=== PATIENT | male | born 1970 | race Caucasian/White ===

== ENCOUNTER 2016-07-20 22:59 | Inpatient (IN) | payer OTHER ==
[~2016-07-20] VITALS: Ht 182.9 cm; Wt 83.0 kg
[2016-07-20 23:01] VITALS: BP 139/80; PULSE 93; RESP 16; TEMP 98.1; O2SAT 97
[2016-07-20] MEDS ORDERED: SODIUM CHLOR 0.9% 1000 ML INJ 1,000 ML IV SCH (23:58)
[2016-07-21] MEDS ORDERED: ceFAZolin 2 GM PREMIX 50 ML IV ONE
[2016-07-21] MEDS ORDERED: ONDANSETRON HCL 4 MG/2 ML VIAL IVP ONE
[2016-07-21] MEDS ORDERED: DIPHTH/TETANUS/ACEL PERTUSSIS (BOOSTER) 0.5 ML VIAL/PFS IM ONE
[2016-07-21] MEDS ORDERED: SODIUM CHLORIDE 0.9% FLUSH 5 ML FLUSH IVF PRN
[2016-07-21] MEDS ORDERED: MORPHINE SULFATE 4 MG/ML INJ IV ONE
[2016-07-21 00:26] LABS: I-STAT POTASSIUM 3.9 MMOL/L (3.5-4.9); I-STAT SODIUM 139 MMOL/L (138-146)
[2016-07-21 00:38] LABS: AUTOMATED NEUTROPHIL # 9.3 TH/MM3 (1.8-7.7); BASOPHIL # 0.1 TH/MM3 (0-0.2); BASOPHIL % 0.6 % (0.0-2.0); EOSINOPHIL # 0.3 TH/MM3 (0-0.4); EOSINOPHIL % 2.3 % (0.0-4.0); HEMATOCRIT 46.5 % (39.0-51.0); HEMO FLAGS DIFF FINAL; LYMPH % 14.3 % (9.0-44.0); LYMPHOCYTE # 1.7 TH/MM3 (1.0-4.8); MEAN CELL VOLUME 86.8 FL (80.0-100.0); MEAN CORPUSCULAR HEMOGLOBIN 29.2 PG (27.0-34.0); MEAN CORPUSCULAR HGB CONC 33.6 % (32.0-36.0); MONO % 5.9 % (0.0-8.0); NEUT % 76.9 % (16.0-70.0); PLATELET COUNT 267 TH/MM3 (150-450); RED BLOOD COUNT 5.36 MIL/MM3 (4.50-5.90); RED CELL DISTRIBUTION WIDTH 13.1 % (11.6-17.2)
[2016-07-21 00:49] LABS: APTT (PATIENT) 23.1 SEC (24.3-30.1); PROTHROMBIN TIME - PATIENT 10.7 SEC (9.8-11.6)
--- NOTE | 2016-07-21 00:54 | RADRPT ---
EXAM DATE/TIME: 07/21/2016 00:47 [facility] COMPARISON: No previous studies available for comparison. INDICATIONS : Trauma. Fell through glass door. RADIATION DOSE: 42.09 CTDIvol (mGy) MEDICAL HISTORY : None SURGICAL HISTORY : None. ENCOUNTER: Initial ACUITY: 1 day PAIN SCALE: 2/10 LOCATION: cranial TECHNIQUE: Multiple contiguous axial images were obtained of the head. Using automated exposure control and adj ustment of the mA and/or kV according to patient size, radiation dose was kept as low as reasonably a chievable to obtain optimal diagnostic quality images. FINDINGS: CEREBRUM: The ventricles are normal for age. No evidence of midline shift, mass lesion, hemorrhage or acute in farction. No extra-axial fluid collections are seen. POSTERIOR FOSSA: The cerebellum and brainstem are intact. The 4th ventricle is midline. The cerebellopontine angle i s unremarkable. EXTRACRANIAL: The visualized portion of the orbits is intact. SKULL: The calvaria is intact. No evidence of skull fracture. CONCLUSION: Normal examination for a patient of this age. Christiano Aaron MD on July 21, 2016 at 0:52 Board Certified Radiologist. This report was verified electronically.
[2016-07-21 01:00] VITALS: RESP 18; O2SAT 98
[2016-07-21 01:03] LABS: CREATINE KINASE 243 U/L (39-308)
--- NOTE | 2016-07-21 01:06 | PD ---
HPI Chief Complaint: Laceration/Skin Injury Time Seen by Provider: 23:58 Travel History International Travel<30 days: No Contact w/Intl Traveler<30days: No Traveled to known affect area: No History of Present Illness HPI The patient is a 46 year old male who presents to the [facility] emergency department with a history of reportedly falling through his glass [place] doors at 10:05 PM today. The patient fell face first through the doors and has multiple facial lacerations. The patient was bandaged prior to arrival. He is unsure if he has involvement of the right eye. The lacerations are worse along the right side of his face. He denies having any neck pain although he was placed in a collar out in triage related to numbness and tingling to the left arm. 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 He reports that he had a 30-45 minute episode of change in his vision involving his left peripheral vision. He reports that he noticed that there appeared to be increased light along the periphery. He denies having any headache when this resolved. He denies ever having symptoms like this previously. His last eye exam was approximately 2 years ago. He reports that he normally wears contacts. The patient reports that he then went home and proceeded to have a normal evening other than not having dinner. He reports that he put his children to bed and around 10 he got up to get a glass of water. He reports that he had generalized weakness and was not able to stand at the sink to get the water initially due to weakness. He went to sit down and then became thirsty again attempting to go back to the sink. He was able to get a small cup of water, however when he attempted to walk away from the sink he lost his balance related to extreme dizziness and fell through the glass doors. The patient reports that he recalls all of the events falling through the glass. He denies having any loss of consciousness. He reports that while lying on the floor he noticed that his left arm was numb although not weak. He reports that it was numb from his mid biceps down to his hand and glove distribution. He reports that over time this seems to be improving. He reports that now it only involves his left hand. He denies having any numbness or tingling any place else. He denies having any difficulty with word finding ability, facial droop, double vision, or one-sided weakness. The patient denies recent fevers, cough, congestion, neck pain, chest pain, shortness of breath, abdominal pain, vomiting, diarrhea, or urinary symptoms. The patient was brought in by private vehicle. The patient denies having a primary care physician. [facility] Past Medical History Narrative Medical The patient's past medical history is significant for none. Past Surgical History Narrative Surgical The patient's past surgical history is significant for an adenoidectomy. Social History Alcohol Use: No Tobacco Use: No Substance Use: No Allergies-Medications (Allergen,Severity, Reaction): Coded Allergies: No Known Allergies (Unverified , 07/20/16) Reported Meds & Prescriptions Reported Meds & Active Scripts Active No Active Prescriptions or Reported Medications Review of Systems Except as stated in HPI: all other systems reviewed are Neg General / Constitutional: No: Fever Eyes: No: Visual changes HENT: No: Headaches Cardiovascular: No: Chest Pain or Discomfort Respiratory: No: Shortness of Breath Gastrointestinal: No: Abdominal Pain Genitourinary: No: Dysuria Musculoskeletal: No: Pain Skin: Positive Other (multiple facial lacerations), No Rash Neurologic: Positive: Weakness (generalized weakness), Paresthesia, Sensory Disturbance, No: Focal Abnormalities, Change in Mentation, Slurred Speech Psychiatric: No: Depression Endocrine: No: Polydipsia Hematologic/Lymphatic: No: Easy Bruising Physical Exam Narrative General: The patient is a well-developed well-nourished male in no acute distress. The patient is brought in on a back board in full c-spine immobilization by emergency services. Head and Neck exam: Head is normocephalic, evidence of trauma to his head, the patient has bandages in place and dried blood at the corners of the bandages. The bandages were gently cut away. The patient was noted to have abrasions in the hairline without any active bleeding, the first laceration that was noted in the center of the forehead and 2-1/2 cm, second laceration is 3 cm and on the left side of his forehead. The patient has a third laceration that is 1.5 cm and just lateral to the upper eyebrow. The patient is noted to have a fourth laceration involving the right upper eyelid that is 2 cm jagged and macerated. The patient has a fifth laceration involving the upper right cheek that is linear and 6 cm. The patient has a 6 laceration that is involving the lower right cheek that is curvilinear and 4.5 cm. The patient has a seventh laceration that is at the corner of the eye proceeding downward, nearly joining the laceration involving the upper portion of his cheek and this is 4 cm. An eighth laceration is noted that is 1.5 cm just lateral to the lateral This, not involving the lateral canthus. The patient has no globe involvement visualized. The patient has facial bone tenderness over the superior orbital ridge and left maxilla. Eyes: EOMI, pupils are equal round and reactive to light. No foreign bodies are noted in the eye. The patient's upper and lower lid was everted and no foreign body was noted. Nose: Midline septum with pink mucous membranes Mouth: Dentition unremarkable. Moist mucus membranes. Posterior oropharynx is not erythematous. No tonsillar hypertrophy. Uvula midline. Airway patent. Neck: The patient is immobilized in a cervical collar. No tracheal deviation. The trachea appears midline. Cardiovascular: Regular rate and rhythm without murmurs, gallops, or rubs. No pulse deficit to the extremities. Lungs: Clear to auscultation bilaterally. No wheezes, rhonchi, or rales. No chest wall tenderness to palpation. No erythema or ecchymosis noted. No crepitus , step off, or flail segment noted. Abdomen: Soft, without tenderness to palpation in all 4 quadrants of the abdomen. No guarding, rebound, or rigidity. Negative [place] sign. Extremities: No clubbing, cyanosis, or edema. 2+ pulses in all 4 extremities. No extremity tenderness or deformity noted on palpation or passive/ active range of motion. Back: No spinous process tenderness to palpation. No costovertebral angle tenderness to palpation. No erythema or ecchymosis. Neurologic Exam: Cranial nerves 2-12 were intact on exam. Strength is 5/5 in all 4 extremities. Alert and oriented to person, place, time, and situation. The patient has intact sensation over all dermatomes except, tingling sensations reported in the left hand that stop at the wrist. He reports that it involves all of his fingers of the left hand. Data Data Last Documented VS Vital Signs Date Time Temp Pulse Resp B/P Pulse Ox O2 Delivery O2 Flow Rate FiO2 07/20/16 23:01 98.1 93 16 139/80 97 Orders I-Stat Profile (07/20/16 23:58) I-Stat Creatinine (07/20/16 23:58) Complete Blood Count With Diff (07/20/16 23:58) Prothrombin Time / Inr (Pt) (07/20/16 23:58) Act Partial Throm Time (Ptt) (07/20/16 23:58) Type And Screen (07/20/16 23:58) Alcohol (Ethanol) (07/20/16 23:58) Urinalysis - C+S If Indicated (07/20/16 23:58) Chest, Single Ap (07/20/16 23:58) Ct Brain W/O Iv Contrast(Rout) (07/20/16 23:58) Ct Cerv Spine W/O Contrast (07/20/16 23:58) Ct Facial Bones W/O Iv Cont (07/20/16 23:58) Apply Cervical Collar (07/20/16 23:58) Iv Access Insert/Monitor (07/20/16 23:58) Ecg Monitoring (07/20/16 23:58) Oximetry (07/20/16 23:58) Oxygen Administration (07/20/16 23:58) Cefazolin 2 Gm Premix (Ancef 2 Gm Premix (07/21/16 00:00) Morphine Inj (Morphine Inj) (07/21/16 00:00) Ondansetron Inj (Zofran Inj) (07/21/16 00:00) Rkhy-Ggr-Ajyefc (Booster) Inj (Boostrix (07/21/16 00:00) Sodium Chlor 0.9% 1000 Ml Inj (Ns 1000 M (07/20/16 23:58) Sodium Chloride 0.9% Flush (Ns Flush) (07/21/16 00:00) B-Type Natriuretic Peptide (07/21/16 00:42) Admit Order (Ed Use Only) (07/21/16 00:49) Ckmb (Isoenzyme) Profile (07/21/16 00:09) Troponin I (07/21/16 00:09) CKMB (07/21/16 00:09) CKMB% (07/21/16 00:09) Labs Laboratory Tests Test 07/21/16 07/21/16 00:09 00:10 Bedside Hemoglobin 16.3 G/DL Bedside Hematocrit 48.0 % Bedside Sodium 139 MMOL/L Bedside Potassium 3.9 MMOL/L Bedside Chloride 100 MMOL/L Bedside Blood Urea Nitrogen 22 MG/DL Bedside Creatinine 1.4 MG/DL Bedside Glucose 117 MG/DL Total Creatine Kinase 243 U/L Creatine Kinase MB 4.4 NG/ML Troponin I LESS THAN 0.02 NG/ML Ethyl Alcohol Level LESS THAN 3 MG/DL White Blood Count 12.0 TH/MM3 Red Blood Count 5.36 MIL/MM3 Hemoglobin 15.6 GM/DL Hematocrit 46.5 % Mean Corpuscular Volume 86.8 FL Mean Corpuscular Hemoglobin 29.2 PG Mean Corpuscular Hemoglobin 33.6 % Concent Red Cell Distribution Width 13.1 % Platelet Count 267 TH/MM3 Mean Platelet Volume 7.5 FL Neutrophils (%) (Auto) 76.9 % Lymphocytes (%) (Auto) 14.3 % Monocytes (%) (Auto) 5.9 % Eosinophils (%) (Auto) 2.3 % Basophils (%) (Auto) 0.6 % Neutrophils # (Auto) 9.3 TH/MM3 Lymphocytes # (Auto) 1.7 TH/MM3 Monocytes # (Auto) 0.7 TH/MM3 Eosinophils # (Auto) 0.3 TH/MM3 Basophils # (Auto) 0.1 TH/MM3 CBC Comment DIFF FINAL Differential Comment Prothrombin Time 10.7 SEC Prothromb Time International 1.0 RATIO Ratio Activated Partial 23.1 SEC Thromboplast Time B-Type Natriuretic Peptide LESS THAN 2 PG/ML Blood Type O POSITIVE Antibody Screen NEGATIVE Blood Bank Comment [facility] Medical Decision Making Medical Screen Exam Complete: Yes Emergency Medical Condition: Yes Medical Record Reviewed: Yes Interpretation(s) Last Impressions Maxillofacial CT 07/20/162357 Signed Impressions: Service Date/Time: Thursday, July 21, 2016 00:47 - CONCLUSION: 1. No acute bony fractures. 2. 2 tiny radiopaque foreign bodies on or just inside the skin along the right forehead above the right orbit. Christiano Aaron MD Head CT 07/20/16 [id number] Signed Impressions: Service Date/Time: Thursday, July 21, 2016 00:47 - CONCLUSION: Normal examination for a patient of this age. Christiano Aaron MD Chest X-Ray 07/20/16 [id number] Signed Impressions: Service Date/Time: Thursday, July 21, 2016 00:54 - CONCLUSION: 1. No acute intrathoracic disease. 2. Evidence of previous granulomatous disease. Christiano Aaron MD Cervical Spine CT 07/20/16 [id number] Signed Impressions: Service Date/Time: Thursday, July 21, 2016 00:47 - CONCLUSION: 1. No acute bony fracture. 2. Primary bony degenerative changes with disc degeneration and disc space narrowing involving the mid to lower cervical spine. Christiano Aaron MD Differential Diagnosis Facial nerve laceration, versus open facial fractures, versus intracranial abnormality, versus cervical spine injury, versus cervical radiculopathy, versus brachial plexus injury, versus TIA, versus intracranial mass, versus cardiac arrhythmia Narrative Course During the course of the patients emergency department visit, the patients history, examination, and differential diagnosis were reviewed with the patient. The patient had IV access obtained and blood work sent for analysis. The patient was placed on a cardiac surgeon with oximetry and blood pressure monitoring. An EKG was done on arrival. The patient had a sinus rhythm heart rate 95, incomplete right bundle branch block noted, no acute ST segment changes are noted, T waves are inverted in V1. An i-STAT with creatinine was ordered in this patient. A chest x-ray was ordered. CT scan of the head, neck , facial bones were ordered. The patient's findings on his examination were discussed with Dr. Garcia as the patient's lacerations were complicated and will require repair in the OR. He did agree to see the patient in consultation and take the patient to the OR. The patient was provided an update of his tetanus. The patient was given Zofran and morphine for nausea and pain. The patient was started on normal saline 1 L IV fluid bolus. The patient was given Ancef 2 g IV. The patients laboratory studies were reviewed and remarkable for an i-STAT with creatinine that shows a sodium of 139, potassium 3.9, chloride 100, BUN 22 , glucose 117, hemoglobin 16.3, creatinine 1.7 Radiology studies were reviewed and remarkable for a CT scan of the brain that was read as unremarkable, CT scan of the facial bones showed no acute bony fractures, however 2 tiny radiopaque foreign bodies were noted above the right eye on the right forehead. The patient's chest x-ray showed no acute abnormality. Evidence of previous granulomatous disease. The patient will be going to the OR for operative repair of his facial lacerations, however the patient will also require admission for dizziness with neurologic symptoms. The patients results were discussed with the patient, including the plan of care. I explained that further testing and/ or monitoring is indicated based on the patients history, examination, and/ or laboratory findings. Therefore, I recommended admission for additional evaluation. The patient expressed understanding and was agreeable with this plan. The patient was admitted to the hospital in stable condition and sent to a bed under the care of the [facility]. Physician Communication Physician Communication A call was placed out to Dr. Jon regarding this patient's case after initially evaluating the patient's lacerations. Due to the extensive nature of these facial lacerations, especially the one involving the upper eyelid on the right side, we did discuss taking the patient to the OR for operative repair. He did agree to do this. He will be coming in to assess the patient and taken to the OR shortly. I spoke to Dr. Farrell the [facility] regarding this patient's evaluation for generalized weakness, dizziness, leading to trauma. He did agree to admit the patient for continued evaluation and treatment. Diagnosis Primary Impression: Generalized weakness Additional Impressions: Dizziness Facial trauma Qualified Code: S09.93XA - Facial trauma, initial encounter Admitting Information Admitting Physician Requests: Admit Scripts No Active Prescriptions or Reported Natividad Harvey MD Jul 21, 2016 01:06
--- NOTE | 2016-07-21 01:12 | RADRPT ---
EXAM DATE/TIME: 07/21/2016 00:47 [facility] COMPARISON: No previous studies available for comparison. INDICATIONS : Trauma. Fell through glass door. RADIATION DOSE: 43.04 CTDIvol (mGy) MEDICAL HISTORY : None SURGICAL HISTORY : None. ENCOUNTER: Initial ACUITY: 1 day PAIN SCORE: 2/10 LOCATION: facial TECHNIQUE: Volumetric scanning of the facial bones was performed. Using automated exposure control and adjustme nt of the mA and/or kV according to patient size, radiation dose was kept as low as reasonably achiev able to obtain optimal diagnostic quality images. FINDINGS: ORBITS: The orbital and infraorbital osseous structures are intact. The retroconal structures have a normal configuration. 2 tiny radiopaque bodies are seen on or just within the skin along the right forehea d just above the right orbit. NASAL BONE: The nasal bone and maxillary spine are intact ZYGOMATIC ARCHES: Symmetric without evidence of fracture. SINUSES: The maxillary, ethmoid and frontal sinuses are intact. No air-fluid levels seen. NASAL CAVITY: The nasal septum is intact and midline. The lacrimal ducts are intact. SOFT TISSUES: 2 tiny radiopaque foreign bodies on or just inside the skin along the right forehead. Soft tissue swe lling over the right orbit. INTRACRANIAL: No intracranial air seen. CRIBIFORM PLATE: Grossly intact. CONCLUSION: 1. No acute bony fractures. 2. 2 tiny radiopaque foreign bodies on or just inside the skin along the right forehead above the rig ht orbit. Christiano Aaron MD on July 21, 2016 at 1:06 Board Certified Radiologist. This report was verified electronically.
--- NOTE | 2016-07-21 01:15 | RADRPT ---
EXAM DATE/TIME: 07/21/2016 00:54 [facility] COMPARISON: No previous studies available for comparison. INDICATIONS : Short of breath after fall. MEDICAL HISTORY : None. SURGICAL HISTORY : None. ENCOUNTER: Initial ACUITY: 1 day PAIN SCORE: 0/10 LOCATION: Bilateral chest FINDINGS: A single view of the chest demonstrates the lungs to be symmetrically aerated without evidence of mas s, infiltrate or effusion. There are some granulomas in the right upper lung and left lung base. The cardiomediastinal contours are unremarkable. Osseous structures are intact. CONCLUSION: 1. No acute intrathoracic disease. 2. Evidence of previous granulomatous disease. Christiano Aaron MD on July 21, 2016 at 1:13 Board Certified Radiologist. This report was verified electronically.
--- NOTE | 2016-07-21 01:15 | RADRPT ---
EXAM DATE/TIME: 07/21/2016 00:47 [facility] COMPARISON: No previous studies available for comparison. INDICATIONS : Trauma. Fell through glass door. RADIATION DOSE: 21.39 CTDIvol (mGy) MEDICAL HISTORY : None SURGICAL HISTORY : None. ENCOUNTER: Initial ACUITY: 1 day PAIN SCALE: 2/10 LOCATION: neck TECHNIQUE: Volumetric scanning of the cervical spine was performed. Multiplanar reconstructions in the sagittal, coronal and oblique axial planes were performed. Using automated exposure control and adjustment o f the mA and/or kV according to patient size, radiation dose was kept as low as reasonably achievable to obtain optimal diagnostic quality images. FINDINGS: VERTEBRAE: Normal vertebral body height. No acute bony fractures. There are some mild primary degenerative geronimo es with disc degeneration and disc space narrowing at C4-5, C5-6 and C6-7. ALIGNMENT: No evidence of subluxation. C2-C3: The bony spinal canal is normal in size. No evidence of disc bulge or herniation. The neural forami na are bilaterally patent. C3-C4: The bony spinal canal is normal in size. No evidence of disc bulge or herniation. The neural forami na are bilaterally patent. C4-C5: The bony spinal canal is normal in size. No evidence of disc bulge or herniation. The neural forami na are bilaterally patent. C5-C6: The bony spinal canal is normal in size. No evidence of disc bulge or herniation. The neural forami na are bilaterally patent. C6-C7: The bony spinal canal is normal in size. No evidence of disc bulge or herniation. The neural forami na are bilaterally patent. C7-T1: The bony spinal canal is normal in size. No evidence of disc bulge or herniation. The neural forami na are bilaterally patent. CONCLUSION: 1. No acute bony fracture. 2. Primary bony degenerative changes with disc degeneration and disc space narrowing involving the mi d to lower cervical spine. Christiano Aaron MD on July 21, 2016 at 1:11 Board Certified Radiologist. This report was verified electronically.
[2016-07-21 01:19] LABS: CKMB 4.4 NG/ML (0.5-3.6)
[2016-07-21] MEDS ORDERED: LIDOCAINE 1%/EPINEPHrine 1:100,000 SOLN 30 ML VIAL ONE (01:32)
[2016-07-21] MEDS ORDERED: BACITRACIN TOP OINT 15 GM TUBE ONE (02:41)
[2016-07-21] MEDS ORDERED: DO NOT ADM ANY ANTICOAGULANT DRUGS XX PRN (03:00)
[2016-07-21] MEDS ORDERED: MIDAZOLAM HCL 2 MG/2 ML VIAL ONE (03:01)
[2016-07-21] MEDS ORDERED: fentaNYL CITRATE 250 MCG/5 ML AMP ONE (03:01)
[2016-07-21] MEDS ORDERED: oxyCODONE/ACETAMINOPHEN 5 MG/325 MG TAB PO PRN (03:15)
--- NOTE | 2016-07-21 08:46 | EKG ---
Date Performed: 07/21/2016 Time Performed: 00:02:02 PTAGE: 46 years EKG: Sinus rhythm INCOMPLETE RIGHT BUNDLE BRANCH BLOCK BORDERLINE ECG DOCTOR: Osmani Otto Interpretating Date/Time 07/21/2016 08:45:39
--- NOTE | 2016-07-21 10:47 | HHI.PR ---
Subjective Remarks pt in pacu with eager for dc Objective Vitals heart reg lung cta abd s/nt ext no edema heent multiple lacs.sutured. periorbital swelling/ecchymosis right eye c collar neurologically no focal weakness Vital Signs Date Time Temp Pulse Resp B/P Pulse Ox O2 Delivery O2 Flow Rate FiO2 07/21/16 08:00 109 17 121/69 97 Room Air 07/21/16 06:00 98.4 97 14 121/65 96 Room Air 07/21/16 04:01 107 17 118/63 94 Room Air 07/21/16 03:30 98.2 110 11 132/70 95 Room Air 07/21/16 03:15 114 12 120/68 95 Room Air 07/21/16 03:00 121 12 122/75 95 Room Air 07/21/16 02:57 98.6 122 14 125/83 94 Room Air 07/21/16 01:00 18 98 Nasal Cannula 2 07/21/16 01:00 99 Nasal Cannula 2 07/20/16 23:01 98.1 93 16 139/80 97 07/20/16 07/20/16 07/21/16 15:00 23:00 07:00 Intake Total 2120 ml Output Total 5 ml Balance 2115 ml Intake Oral 120 ml IV Total 1300 ml Other 700 ml Output Urine Total 0 ml Estimated Blood Loss 5 ml Other 0 ml Result Diagram: 07/21/16 0010 A/P Problem List: (1) Facial trauma Status: Acute Plan: Pt has no reported medical hx. says he felt tired and thirsty after arriving home from work last night had 20-30 minutes of "halo peripheral vision on left side while working at the computer". no headaches. Says he was walking from the kitchen and was weak and felll through glass door. denies palpitation, vertigo, tripping. He doesnt believe he lost conciousness. Had multiple facial lacs s/p repear this morning. CT head and neck nothing acute on telemetry has had sinus tach all morning. basic labs unremarkable c/o dry mouth since last night. denies any prescribed and otc medications. intermitt. creatine. echo pending monitor on tele ivf d/c cervical collar PT eval for ambulation f/u labs this AM plan outpt holter tsh I recommended overnight stay for evaluation but pt leaning toward going home later today. addendum; Persistent sinus tach. discussed echo with dr hernandes. he says pt has significant LVH and could be at risk for VT...he recommended consult to dr Saleem. will notify pt to stay. (2) Near syncope Status: Acute Plan: see above Problem Qualifiers (1) Facial trauma: Qualified Code: S09.93XA - Facial trauma, initial encounter Amos Kerr MD Jul 21, 2016 10:47
[2016-07-21] MEDS ORDERED: SODIUM CHLOR 0.9% 1000 ML INJ 1,000 ML IV SCH (11:00)
[2016-07-21] MEDS ORDERED: ceFAZolin INJ 1,000 MG VIAL ONE (12:19)
[2016-07-21] MEDS ORDERED: NEOMYCIN/POLYMYXIN/BACITRACIN OINT 15 GM TUBE ONE (12:19)
[2016-07-21] MEDS ORDERED: SODIUM CHLORIDE 0.9% INJ 100 ML ONE (12:20)
[2016-07-21] MEDS: ceFAZolin 1,000 MG/NS 100 ML IV SCH ×4 (12:30→17:08)
[2016-07-21 12:42] LABS: ALT (GPT) 35 U/L (12-78); ANION GAP 7 MEQ/L (5-15); AST (GOT) 31 U/L (15-37); BICARBONATE 27.7 MEQ/L (21.0-32.0); BLOOD UREA NITROGEN 13 MG/DL (7-18); CHLORIDE 104 MEQ/L (98-107); GLOMERULAR FILTRATION RATE 59 ML/MIN (>89); POTASSIUM 4.1 MEQ/L (3.5-5.1); SODIUM (NA) 139 MEQ/L (136-145)
[2016-07-21] MEDS: NEOMYCIN/POLYMYXIN/BACITRACIN OINT 15 GM TUBE TOPICAL SCH ×2 (12:51→17:08)
[2016-07-21 12:52] LABS: ALKALINE PHOSPHATASE 47 U/L (45-117); FREE T4 1.19 NG/DL (0.76-1.46); TOTAL BILIRUBIN ADULT 0.4 MG/DL (0.2-1.0)
[2016-07-21] MEDS ORDERED: LACTATED RINGER'S 1000 ML INJ 1,000 ML IV ONE (14:07)
[2016-07-21] MEDS ORDERED: PROPOFOL 200 MG/20 ML AMP IV ONE (14:07)
[2016-07-21 15:00] VITALS: BP 129/76; PULSE 107; RESP 18; TEMP 98; O2SAT 93
[2016-07-21 16:00] VITALS: BP 127/79; PULSE 96; RESP 18; TEMP 97.7; O2SAT 96
[2016-07-21] MEDS ORDERED: CEPH-460 PO (16:42)
[2016-07-21] MEDS ORDERED: IOHEXOL 350 MG/ML 10 ML VIAL (for RAD DIAG) IV ONE (18:38)
--- NOTE | 2016-07-21 18:59 | RADRPT ---
EXAM DATE/TIME: 07/21/2016 18:39 [place] COMPARISON: CHEST SINGLE AP, July 21, 2016, 0:54. INDICATIONS : Tachycardia with syncopal episode; evaluate for pulmonary embolism. IV CONTRAST: 50 cc Omnipaque 350 (iohexol) IV RADIATION DOSE: 23.38 CTDIvol (mGy) MEDICAL HISTORY : None SURGICAL HISTORY : None. ENCOUNTER: Initial ACUITY: 1 day PAIN SCALE: 0/10 LOCATION: chest TECHNIQUE: Volumetric scanning of the chest was performed using a pulmonary embolism protocol MIP images were re constructed. Using automated exposure control and adjustment of the mA and/or kV according to patien t size, radiation dose was kept as low as reasonably achievable to obtain optimal diagnostic quality images. FINDINGS: PULMONARY ARTERIES: No filling defects are seen in the pulmonary arteries through the segmental level. LUNGS: There is no consolidation or pneumothorax . There are bilateral calcified granulomas. There is a 8 mm groundglass opacity in the anterior right upper lobe as seen on axial image #39. PLEURAE: There is no pleural thickening or pleural effusion. There are calcified mediastinal and hilar lymph n odes. MEDIASTINUM: There is good visualization of the great vessels of the middle mediastinum. No evidence of mediastin al or hilar adenopathy/mass. MUSCULOSKELETAL: Within normal limits for patient age. MISCELLANEOUS: The visualized upper abdominal organs demonstrate no acute abnormality. There are calcified granuloma s in the spleen. There is a small apparent cyst in the liver. CONCLUSION: 1. No evidence of pulmonary embolism. 2. 8 mm groundglass nodule in the right upper lobe which is nonspecific. Short-term CT followup is re commended beginning in 6 months. 3. Old granulomatous disease with mediastinal and hilar calcified nodes and calcified granulomas in t he lungs as well as the spleen. John Fong MD on July 21, 2016 at 18:54 Board Certified Radiologist. This report was verified electronically.
[2016-07-21 20:00] VITALS: BP 154/89; PULSE 106; PULSE 97; RESP 18; TEMP 97.5; O2SAT 100
--- NOTE | 2016-07-21 20:00 | EC ---
Study Study Date:07/21/2016 STUDY CONCLUSIONS SUMMARY - Left ventricle: The cavity size was normal. Wall thickness was increased in a pattern of mild LVH. There was concentric hypertrophy. Systolic function was normal. The estimated ejection fraction was in the range of 60% to 65%. Wall motion was normal; there were no regional wall motion abnormalities. Doppler parameters are consistent with abnormal left ventricular relaxation (grade 1 diastolic dysfunction). - Tricuspid valve: Mild regurgitation. - Pulmonary arteries: PA peak pressure: 37mm Hg (S). If LV function is below 40, please consider prescribing an ACEI or ARB or document rationale for non-use. PROCEDURE DATA STUDY STATUS: Elective. Procedure: Transthoracic echocardiography. Image quality was good. Scanning was performed from the parasternal, apical, and subcostal acoustic windows. Study completion: The patient tolerated the procedure well. Transthoracic echocardiography. M-mode, complete 2D, complete spectral Doppler, and color Doppler. Patient status: Inpatient. CARDIAC ANATOMY LEFT VENTRICLE: The cavity size was normal. Wall thickness was increased in a pattern of mild LVH. There was concentric hypertrophy. Systolic function was normal. The estimated ejection fraction was in the range of 60% to 65%. Wall motion was normal; there were no regional wall motion abnormalities. Doppler parameters are consistent with abnormal left ventricular relaxation (grade 1 diastolic dysfunction). AORTIC VALVE: The valve appears to be grossly normal. [place]. Doppler: There was no stenosis. No significant regurgitation. MITRAL VALVE: The valve appears to be grossly normal. Doppler: There was no evidence for stenosis. Trace regurgitation. LEFT ATRIUM: The atrium was normal in size. RIGHT VENTRICLE: The cavity size was normal. Systolic function was normal. PULMONIC VALVE: The valve appears to be grossly normal. Doppler: There was no evidence for stenosis. No significant regurgitation. TRICUSPID VALVE: The valve appears to be grossly normal. Doppler: There was no evidence for stenosis. Mild regurgitation. PERICARDIUM: There was no pericardial effusion. BASIC MEASUREMENTS ADULT Normal Left ventricle LV internal dimension, ED, chordal level, *42.8 mm 43-52 PLAX LV posterior wall thickness, ED 7 mm IVS/LVPW ratio, ED *1.49 <1.3 Ventricular septum Septal thickness, ED 10.4 mm Aortic valve Leaflet separation 21 mm 15-26 Left atrium Anterior-posterior dimension 29 mm Right ventricle RV internal dimension, ED, PLAX 21.8 mm 19-38 BASIC MEASUREMENTS ADULT Normal Aortic valve Leaflet separation 21 mm 15-26 Aorta Root diameter, ED 35 mm 20-37 DOPPLER MEASUREMENTS ADULT Normal Main pulmonary artery Pressure, S *37 mm Hg =30 Mitral valve Peak E-wave velocity 57.8 cm/s Peak A-wave velocity 110 cm/s Peak E/A ratio 0.5 Tricuspid valve Regurgitant peak velocity 277 cm/s Peak RV-RA gradient, S 31 mm Hg Maximal regurgitant velocity 277 cm/s Systemic veins Estimated CVP 5 mm Hg Right ventricle RV pressure, S *37 mm Hg <30 LEGEND: Mean values are shown as u=mean value. Asterisk (*) davila values outside specified normal range. Prepared and signed by Lenin Rivera [id number]
[2016-07-21 20:04] LABS: BLOOD, URINE NEG (NEG); GLUCOSE,URINE NEG (NEG); KETONE, URINE NEG (NEG); NITRITE,URINE NEG (NEG); SQUAMOUS EPITHELIAL CELL URINE <1 /hpf (0-5); URINE COLOR COLORLESS (YELLW/STRAW)
[2016-07-21 20:09] LABS: AMPHETAMINE, URINE NEG (NEG); BARBITURATES, URINE NEG (NEG); COCAINE, URINE NEG (NEG)
[2016-07-21 20:11] LABS: COMMENT (UR) CULT NOT INDICATED; CULTURE IF INDICATED CULT NOT INDICATED
[2016-07-22] VITALS: BP 128/70; PULSE 94; RESP 18; TEMP 99; O2SAT 96
[2016-07-22] MEDS: ceFAZolin 1,000 MG/NS 100 ML IV SCH ×2 (00:11)
[2016-07-22 04:00] VITALS: BP 119/67; PULSE 82; RESP 16; TEMP 98; O2SAT 97
[2016-07-22 08:00] VITALS: BP 122/70; PULSE 90; RESP 17; TEMP 98.2; O2SAT 96
[2016-07-22] MEDS: NEOMYCIN/POLYMYXIN/BACITRACIN OINT 15 GM TUBE TOPICAL SCH ×3 (08:31→16:36)
--- NOTE | 2016-07-22 11:47 | HHI.PR ---
Subjective Remarks No acute events overnight. HR this morning in the 80-90s on telemetry No new complaints Pt is anxious for discharge. Objective Vitals Vital Signs Date Time Temp Pulse Resp B/P Pulse Ox O2 Delivery O2 Flow Rate FiO2 07/22/16 08:00 98.2 90 17 122/70 96 07/22/16 04:00 98.0 82 16 119/67 97 07/22/16 00:00 99.0 94 18 128/70 96 07/21/16 20:00 97.5 106 18 154/89 100 07/21/16 20:00 97 07/21/16 16:00 97.7 96 18 127/79 96 07/21/16 15:00 98.0 107 18 129/76 93 07/21/16 12:00 98.3 115 17 134/70 96 Room Air 07/21/16 07/21/16 07/22/16 15:00 23:00 07:00 Intake Total 435 ml 340 ml 340 ml Output Total 1300 ml Balance -865 ml 340 ml 340 ml Intake Oral 240 ml 240 ml IV Total 435 ml 100 ml 100 ml Output Urine Total 1300 ml # Voids 2 2 1 # Bowel Movements 0 0 Result Diagram: 07/21/16 0010 07/21/16 1158 Other Results Laboratory Tests Test 07/21/16 07/21/16 07/21/16 07/21/16 00:09 00:10 11:58 19:05 Bedside Hemoglobin 16.3 G/DL Bedside Hematocrit 48.0 % Bedside Sodium 139 MMOL/L Bedside Potassium 3.9 MMOL/L Bedside Chloride 100 MMOL/L Bedside Blood Urea Nitrogen 22 MG/DL Bedside Creatinine 1.4 MG/DL Bedside Glucose 117 MG/DL Total Creatine Kinase 243 U/L Creatine Kinase MB 4.4 NG/ML Troponin I LESS THAN 0.02 NG/ML Ethyl Alcohol Level LESS THAN 3 MG/DL White Blood Count 12.0 TH/MM3 Red Blood Count 5.36 MIL/MM3 Hemoglobin 15.6 GM/DL Hematocrit 46.5 % Mean Corpuscular Volume 86.8 FL Mean Corpuscular Hemoglobin 29.2 PG Mean Corpuscular Hemoglobin 33.6 % Concent Red Cell Distribution Width 13.1 % Platelet Count 267 TH/MM3 Mean Platelet Volume 7.5 FL Neutrophils (%) (Auto) 76.9 % Lymphocytes (%) (Auto) 14.3 % Monocytes (%) (Auto) 5.9 % Eosinophils (%) (Auto) 2.3 % Basophils (%) (Auto) 0.6 % Neutrophils # (Auto) 9.3 TH/MM3 Lymphocytes # (Auto) 1.7 TH/MM3 Monocytes # (Auto) 0.7 TH/MM3 Eosinophils # (Auto) 0.3 TH/MM3 Basophils # (Auto) 0.1 TH/MM3 CBC Comment DIFF FINAL Differential Comment Prothrombin Time 10.7 SEC Prothromb Time International 1.0 RATIO Ratio Activated Partial 23.1 SEC Thromboplast Time B-Type Natriuretic Peptide LESS THAN 2 PG/ML Blood Type O POSITIVE Antibody Screen NEGATIVE Blood Bank Comment Sodium Level 139 MEQ/L Potassium Level 4.1 MEQ/L Chloride Level 104 MEQ/L Carbon Dioxide Level 27.7 MEQ/L Anion Gap 7 MEQ/L Blood Urea Nitrogen 13 MG/DL Creatinine 1.32 MG/DL Estimat Glomerular Filtration 59 ML/MIN Rate Random Glucose 115 MG/DL Calcium Level 8.6 MG/DL Total Bilirubin 0.4 MG/DL Aspartate Amino Transf 31 U/L (AST/SGOT) Alanine Aminotransferase 35 U/L (ALT/SGPT) Alkaline Phosphatase 47 U/L Total Protein 6.3 GM/DL Albumin 3.5 GM/DL Free Thyroxine 1.19 NG/DL Thyroid Stimulating Hormone 0.625 uIU/ML 3rd Gen Urine Color COLORLESS Urine Turbidity CLEAR Urine pH 7.0 Urine Specific [place] 1.011 Urine Protein NEG mg/dL Urine Glucose (UA) NEG mg/dL Urine Ketones NEG mg/dL Urine Occult Blood NEG Urine Nitrite NEG Urine Bilirubin NEG Urine Urobilinogen LESS THAN 2.0 MG/DL Urine Leukocyte Esterase NEG Urine WBC LESS THAN 1 /hpf Urine Squamous Epithelial <1 /hpf Cells Microscopic Urinalysis Comment CULT NOT INDICATED Urine Opiates Screen NEG Urine Barbiturates Screen NEG Urine Amphetamines Screen NEG Urine Benzodiazepines Screen NEG Urine Cocaine Screen NEG Urine Cannabinoids Screen NEG Imaging Last Impressions CT Angiography 07/21/16 0000 Signed Impressions: Service Date/Time: Thursday, July 21, 2016 18:39 - CONCLUSION: 1. No evidence of pulmonary embolism. 2. 8 mm groundglass nodule in the right upper lobe which is nonspecific. Short-term CT followup is recommended beginning in 6 months. 3. Old granulomatous disease with mediastinal and hilar calcified nodes and calcified granulomas in the lungs as well as the spleen. John Fong MD Maxillofacial CT [id number]/20/[id number] Signed Impressions: Service Date/Time: Thursday, July 21, 2016 00:47 - CONCLUSION: 1. No acute bony fractures. 2. 2 tiny radiopaque foreign bodies on or just inside the skin along the right forehead above the right orbit. Christiano Aaron MD Head CT [id number]/[id number] Signed Impressions: Service Date/Time: Thursday, July 21, 2016 00:47 - CONCLUSION: Normal examination for a patient of this age. Christiano Aaron MD Chest X-Ray [id number]/20/162357 Signed Impressions: Service Date/Time: Thursday, July 21, 2016 00:54 - CONCLUSION: 1. No acute intrathoracic disease. 2. Evidence of previous granulomatous disease. Christiano Aaron MD Cervical Spine CT [id number]/20/162357 Signed Impressions: Service Date/Time: Thursday, July 21, 2016 00:47 - CONCLUSION: 1. No acute bony fracture. 2. Primary bony degenerative changes with disc degeneration and disc space narrowing involving the mid to lower cervical spine. Christiano Aaron MD Objective Remarks General: NAD, AAOx3 HENT: multiple laceration repairs to the right side of his face s/p repair with sutures are c/d/i Chest: CTA bilaterally Cardiac: Regular Abd: +BS, soft ND/NT Ext: no edema A/P Problem List: (1) Facial trauma Status: Acute Plan: - Pt has no reported medical hx. - Pt says he felt tired and thirsty after arriving home from work last night had 20-30 minutes of "halo peripheral vision on left side while working at the computer". No headaches. Says he was walking from the kitchen and was weak and fell through glass door. - Denies palpitation, vertigo, tripping. He doesn't believe he lost consciousness. - Had multiple facial lacs s/p repair on 07/21. - CT head and neck nothing acute - Telemetry has had sinus tach all day yesterday but overnight int he 80-90s - 2D echo (07/21) - Mild LVH, concentric hypertrophy - estimated EF 60-65% - grade 1 diastolic dysfunction - mild tricuspid regurgitation - PA peak pressure 37mmHg - Basic labs unremarkable. TSH/Free T4 were stable. - Pt denies any prescribed and otc medications. intermittently uses creatine. - Holter monitor to be completed today - CT Pulm Angiogram was negative for PE, 8mm ground glass nodule in the right upper lobe which is nonspecific, old granulomatous disease, with mediastinal and hilar calcified nodes and calcified granulomas in the lungs as well as the spleen. - Pt was seen by Dr. Saleem this morning. Pt recommended to have an EPS done tomorrow and if that was negative then loop recorder - Pt will need to followup with Dr. Garcia regarding his facial laceration repairs. - Pt will need to establish with a [facility] PCP and will need a repeat outpt CT for monitoring of the pulmonary nodule. (2) Near syncope Status: Acute Plan: - See above Assessment and Plan Patient examined. Assessment and plan formulated with Evi Lui PA-C. I agree with the above. discussed with DR Saleem. He needs EP study. If negative then implantable loop recorder. schedule for tomorrow. Problem Qualifiers (1) Facial trauma: Qualified Code: S09.93XA - Facial trauma, initial encounter Evi Lui Jul 22, 2016 11:47 Amos Kerr MD Jul 22, 2016 12:59
[2016-07-22 12:00] VITALS: BP 136/82; PULSE 93; RESP 16; TEMP 96.4; O2SAT 97
[2016-07-22 16:00] VITALS: BP 128/84; PULSE 100; RESP 17; TEMP 97.8; O2SAT 97
[2016-07-22 20:00] VITALS: BP 127/72; PULSE 95; RESP 18; TEMP 99.7; O2SAT 97
--- NOTE | 2016-07-22 20:23 | HM ---
Date Performed: 07/21/2016 Time Performed: 13:38:00 HOOKUP DATE: 07/21/16 01:38:00 PM Wed ANALYSIS START TIME: 07/21/2016 1:43:00 PM ANALYSIS END TIME: 07/22/2016 10:35:52 AM PATIENT AGE: 46 PATIENT HEIGHT PATIENT WEIGHT DRUG LIST PATIENT DIAGNOSIS: dizziness TEST NARRATIVE: The patient's average heart rate was 98 BPM. Heart rates greater than 120 B PM were noted 14% of the time. No episodes of bradycardia were noted. No pauses exceeding 2.0 se conds were noted. No ventricular ectopics were noted. No supraventricular ectopics were noted . No episodes of ST depression (defined as -1.0 mm or more) were noted in channel 1. No episodes of ST depression (defined as -1.0 mm or more) were noted in channel 2. No episodes of ST depression (defined as -1.0 mm or more) were noted in channel 3. TEST INTERPRETATION: 24 Hour Holter Monitor - Dr. Carlos Alberto Kellogg Patient monitored for h istory of dizziness for 20 hours and 53 minutes. The average heart rate was 98 beats per minute, with a minimum heart rate of 65 beats and a maximum heart rate of 143 beats per minute. There were no premature atrial contractions or premature ventricular contractions seen. CONCLUSSION: Holter no emily only for occassional sinus tachicardia, otherwise unremarkable. Signed by : Carlos Alberto Kellogg
[2016-07-23] VITALS: BP 124/73; PULSE 87; RESP 18; TEMP 97.5; O2SAT 96
[2016-07-23 03:58] VITALS: BP 123/64; PULSE 84; RESP 18; TEMP 97.8; O2SAT 98
--- NOTE | 2016-07-23 06:41 | MB ---
cc: CHARLY PEDRAZA M.D., HANSCY M.D. DATE OF CONSULTATION 07/22/2016 REASON FOR CONSULTATION Syncopal episode. HISTORY OF PRESENT ILLNESS Mr. Payan is a 46-year-old gentleman with no previous history of systemic illness, very active. He is a travel physical therapist. He was at home and coming from one room to another, felt thirsty and also dizzy, dropped on a glass door and lost consciousness. He was admitted. Since hospitalization, echocardiogram normal. No chest pain. I was consulted for further evaluation and management. The chart was reviewed. The patient was evaluated. I did have a long conversation with Mr. Payan. ALLERGIES None. SOCIAL HISTORY The gentleman denies smoking and drinking. FAMILY HISTORY Mom has some palpitations. Not sure what it is. MEDICATION For now none. The patient was not even taking supplements. PHYSICAL EXAMINATION GENERAL: Alert, fully oriented. VITAL SIGNS: His blood pressure was 119/67, pulse 82, respiratory rate 18. LUNGS: Ventilated. CARDIOVASCULAR: S1, S2. No gallop. No murmur. ABDOMEN: Soft. No mass. No bruit. EXTREMITIES: No edema. ELECTROCARDIOGRAM Sinus rhythm. No acute ST and T-wave changes. No pre-excitation. QT is within normal limits, around 360 milliseconds. LABORATORY DATA Hemoglobin 15, white blood cells 12. May be due to acute stress. Potassium 4.1, creatinine is 1.32. Troponin 0.02. INR 1.0. ASSESSMENT AND RECOMMENDATIONS Mr. Payan is very active. There is no previous episode of syncope. He refers some dizziness in the past. This is a young, 46-year-old gentleman, very active that ended up under glass door with multiple facial cuts and trauma. There is no sign of TIA. At this point electrophysiology study is recommended. If no arrhythmia induced or there is normal AV node conduction, the gentleman will need a loop recorder. Case discussed with him extensively. The risks, the nature and the benefit of the procedure are clearly stated to him. The risks include pneumothorax, cardiac perforation, stroke and even . He understood and agreed to proceed. I will keep him on n.p.o. after midnight and procedure in the morning. Quynh Saleem MD HS/SSB /5:46 PM /6:32 AM
[2016-07-23] MEDS ORDERED: ISOPROTERENOL HCL 1 MG/5 ML AMP ONE (07:19)
[2016-07-23] MEDS ORDERED: LACTATED RINGER'S 1000 ML INJ 1,000 ML IV ONE (08:00)
[2016-07-23] MEDS ORDERED: PROPOFOL 200 MG/20 ML AMP IV ONE (08:00)
[2016-07-23] MEDS ORDERED: SODIUM CHLORID 0.9% 500 ML INJ 500 ML IV ONE (08:00)
[2016-07-23] MEDS ORDERED: SODIUM CHLOR 0.9% 250 ML INJ 250 ML IV ONE (08:00)
[2016-07-23] MEDS ORDERED: MIDAZOLAM HCL 2 MG/2 ML VIAL ONE (08:02)
[2016-07-23] MEDS ORDERED: DO NOT ADM ANY ANTICOAGULANT DRUGS XX PRN (08:10)
[2016-07-23] MEDS ORDERED: ATROPINE SULFATE 1 MG/ML VIAL IV PRN (08:15)
[2016-07-23] MEDS ORDERED: LIDOCAINE HCL 1% 50 ML VIAL INFIL PRN (08:15)
[2016-07-23] MEDS ORDERED: SODIUM CHLOR 0.9% 250 ML INJ 250 ML IV PRN (08:15)
[2016-07-23] MEDS ORDERED: ONDANSETRON HCL 4 MG/2 ML VIAL IV PRN (09:00)
[2016-07-23] MEDS ORDERED: METOCLOPRAMIDE HCL 10 MG/2 ML VIAL IV PRN (09:00)
[2016-07-23] MEDS ORDERED: oxyCODONE/ACETAMINOPHEN 5 MG/325 MG TAB PO PRN (09:00)
--- NOTE | 2016-07-23 17:27 | HHI.DCPOC ---
Discharge Care Plan Diagnosis: (1) Syncope (2) Atrial fibrillation (3) Facial trauma (4) Lung nodule Goals to Promote Your Health * To prevent worsening of your condition and complications * To maintain your health at the optimal level Directions to Meet Your Goals Take your medications as prescribed Follow your dietary instruction Follow activity as directed Keep your appointments as scheduled Take your immunizations and boosters as scheduled If your symptoms worsen call your PCP, if no PCP go to Urgent Care Center or Emergency Room Smoking is Dangerous to Your Health. Avoid second hand smoke Call the 24-hour hour crisis hotline for domestic abuse at Amos Kerr MD Jul 23, 2016 17:27
[2016-07-23 17:46] VITALS: BP 137/87; PULSE 100; PULSE 99; RESP 17; TEMP 98.8; O2SAT 98
[2016-07-23] MEDS: NEOMYCIN/POLYMYXIN/BACITRACIN OINT 15 GM TUBE TOPICAL SCH (18:00)
--- NOTE | 2016-07-23 20:54 | HHI.PR ---
Subjective Remarks doing well. post eps. ambulating Objective Vitals heart reg lung cta abd s/nt ext no edema heent facial lacs with sutures. Vital Signs Date Time Temp Pulse Resp B/P Pulse Ox O2 Delivery O2 Flow Rate FiO2 07/23/16 17:46 98.8 99 17 137/87 98 07/23/16 17:46 100 07/23/16 08:30 97 Room Air 07/23/16 03:58 97.8 84 18 123/64 98 07/23/16 00:00 97.5 87 18 124/73 96 07/22/16 07/22/16 07/23/16 15:00 23:00 07:00 Intake Total 1200 ml 240 ml 0 ml Balance 1200 ml 240 ml 0 ml Intake Oral 1200 ml 240 ml 0 ml # Voids 4 1 1 # Bowel Movements 1 0 0 Result Diagram: 07/21/16 0010 07/21/[address] Angiography 07/21/16 0000 Signed Impressions: Service Date/Time: Thursday, July 21, 2016 18:39 - CONCLUSION: 1. No evidence of pulmonary embolism. 2. 8 mm groundglass nodule in the right upper lobe which is nonspecific. Short-term CT followup is recommended beginning in 6 months. 3. Old granulomatous disease with mediastinal and hilar calcified nodes and calcified granulomas in the lungs as well as the spleen. John Fong MD Maxillofacial CT 07/20/[id number] Signed Impressions: Service Date/Time: Thursday, July 21, 2016 00:47 - CONCLUSION: 1. No acute bony fractures. 2. 2 tiny radiopaque foreign bodies on or just inside the skin along the right forehead above the right orbit. Christiano Aaron MD Head CT 07/20/[id number] Signed Impressions: Service Date/Time: Thursday, July 21, 2016 00:47 - CONCLUSION: Normal examination for a patient of this age. Christiano Aaron MD Chest X-Ray 07/20/162357 Signed Impressions: Service Date/Time: Thursday, July 21, 2016 00:54 - CONCLUSION: 1. No acute intrathoracic disease. 2. Evidence of previous granulomatous disease. Christiano Aaron MD Cervical Spine CT 07/20/[id number] Signed Impressions: Service Date/Time: Thursday, July 21, 2016 00:47 - CONCLUSION: 1. No acute bony fracture. 2. Primary bony degenerative changes with disc degeneration and disc space narrowing involving the mid to lower cervical spine. Christiano Aaron MD A/P Problem List: (1) Facial trauma Status: Acute Plan: - Pt has no reported medical hx. - Pt says he felt tired and thirsty after arriving home from work last night had 20-30 minutes of "halo peripheral vision on left side while working at the computer". No headaches. Says he was walking from the kitchen and was weak and fell through glass door. - Denies palpitation, vertigo, tripping. He doesn't believe he lost consciousness. - Had multiple facial lacs s/p repair on 07/21. - CT head and neck nothing acute - Telemetry has had sinus tach all day yesterday but overnight int he 80-90s - 2D echo (07/21) - Mild LVH, concentric hypertrophy - estimated EF 60-65% - grade 1 diastolic dysfunction - mild tricuspid regurgitation - PA peak pressure 37mmHg - Basic labs unremarkable. TSH/Free T4 were stable. -Holter sinus tach - Pt denies any prescribed and otc medications. intermittently uses creatine. - CT Pulm Angiogram was negative for PE, 8mm ground glass nodule in the right upper lobe which is nonspecific, old granulomatous disease, with mediastinal and hilar calcified nodes and calcified granulomas in the lungs as well as the spleen. - Pt will need to followup with Dr. Garcia regarding his facial laceration repairs. - Pt will need to establish with a [facility] PCP and will need a repeat outpt CT for monitoring of the pulmonary nodule. discussed with he and -EPS today reportedly showed afib..pt can be discharged when ok with dr Saleem. (2) Near syncope Status: Acute Plan: - See above Problem Qualifiers (1) Facial trauma: Qualified Code: S09.93XA - Facial trauma, initial encounter Amos Kerr MD Jul 23, 2016 20:54
--- NOTE | 2016-07-24 16:52 | HHI.DS ---
Discharge Summary Admission Date Jul 21, 2016 at 00:51 Discharge Date: Jul 23, 2016 Admitting Diagnosis Generalized weakness, Dizziness, Facial trauma (1) Facial trauma Diagnosis: Principal (2) Atrial fibrillation Diagnosis: Principal (3) Syncope Diagnosis: Principal (4) Lung nodule Diagnosis: Principal CBC/BMP: 07/21/16 0010 07/21/16 1158 Hospital Course - Pt has no reported medical hx. - Pt says he felt tired and thirsty after arriving home from work last night had 20-30 minutes of "halo peripheral vision on left side while working at the computer". No headaches. Says he was walking from the kitchen and was weak and fell through glass door. - Denies palpitation, vertigo, tripping. He doesn't believe he lost consciousness. - Had multiple facial lacs s/p repair on 07/21. - CT head and neck nothing acute - Telemetry has had sinus tach all day yesterday but overnight int he 80-90s - 2D echo (07/21) - Mild LVH, concentric hypertrophy - estimated EF 60-65% - grade 1 diastolic dysfunction - mild tricuspid regurgitation - PA peak pressure 37mmHg - Basic labs unremarkable. TSH/Free T4 were stable. -Holter sinus tach - Pt denies any prescribed and otc medications. intermittently uses creatine. - CT Pulm Angiogram was negative for PE, 8mm ground glass nodule in the right upper lobe which is nonspecific, old granulomatous disease, with mediastinal and hilar calcified nodes and calcified granulomas in the lungs as well as the spleen. - Pt will need to followup with Dr. Garcia regarding his facial laceration repairs. - Pt will need to establish with a [facility] PCP and will need a repeat outpt CT for monitoring of the pulmonary nodule. discussed with he and -EPS today reportedly showed afib..Pt discharged after seen by dr Saleem and he gives final instruction Pt Condition on Discharge: Stable Discharge Disposition: Discharge Home Discharge Instructions DIET: Follow Instructions for: As Tolerated, No Restrictions Activities you can perform: Regular-No Restrictions Follow up Referrals: Cardiology - 10 Days with Quynh Saleem MD PCP Follow-up - 1 Week with [facility] PCP Plastic Surgery - [address] Garcia New Medications: Cephalexin (Keflex) 500 Mg Cap 500 MG PO Q8H Infection Days 5 Ref 0 CAP Amos Kerr MD Jul 24, 2016 16:52
--- NOTE | 2016-08-03 13:10 | MA ---
cc: KRISTEN SHELLEY M.D. DATE 08/03/2016 PROCEDURE PERFORMED Electrophysiology study and CS cannulation. INDICATIONS Mr. Payan is a 46-year-old gentleman very active with an episode of syncope, facial trauma, ended up in glass door with multiple fascial cuts who will undergo electrophysiology study. The risks, the nature and the benefit of the procedure are clearly stated to him. The risks include pneumothorax, cardiac perforation, stroke, need for open heart surgery and even . The patient understood and agreed to proceed. PROCEDURE After written informed consent was obtained, the patient was brought to the EP lab where he was prepped and draped in the usual sterile fashion. Conscious sedation was initiated and maintained throughout the procedure by anesthesiologist. Once sedation verified, the right inguinal area was anesthetized with 2% Xylocaine. Using modified Seldinger technique, the right femoral vein was cannulated on four occasions. Four guidewires were advanced over the wire, three 5 and a 6-Chilean Hemaquet were advanced. Then under fluoroscopic guidance through the 5 and 6 Chilean Hemaquet, four 5-Chilean Marc curved quadripolar electrophysiology catheters were advanced and positioned on the His, upper right atrium, coronary sinus and right ventricular apex. Basic interval was measured and they were within normal limits. At this point, atrial pacing protocol was performed. Atrial pacing protocol consisted of incremental atrial pacing as well as program stimulation with one drive train cycle length and up to on extra stimuli delivered. During atrial pacing protocol on multiple occasions, atrial fibrillation was induced. Then again ventricular pacing protocol was performed. Then atrial pacing protocol was performed again. Atrial fibrillation was induced again. At that point, the procedure was completed. The main issue of the gentleman is atrial fibrillation with fast ventricular response. He is going to be transferred to the recovery room. I will discuss the case with him. And possible ablation will be discussed in the future. No incident report. The patient tolerated procedure. Blood loss minimal. 1. Electrocardiogram: At baseline, the patient was in sinus, postprocedure, electrocardiogram was unchanged. 2. Basic interval: The base cycle length was around 840 milliseconds, AH was around 90 and HV was around 50 milliseconds. 3. Atrial pacing protocol: Wenckebach could not be reached. The patient went into atrial fibrillation on multiple occasions just by pacing. Then ventricular pacing protocol, there was VA conduction. No tachyarrhythmia was induced. CONCLUSION Positive electrophysiology study for atrial fibrillation. COMMENT AND RECOMMENDATIONS As mentioned before, this gentleman going to be discharged home. Anticoagulation is going to be initiated. If he agrees, I will proceed with atrial fibrillation ablation. MD MARLIN Velasco/MAURA /12:57 PM /1:04 PM
--- NOTE | 2016-08-03 14:06 | MP ---
cc: ELINOR ROSALES D.D.S. DATE OF SURGERY: 07/23/2016 INDICATION FOR PROCEDURE Mr. Payan is a gentleman who presents to the emergency room after a syncopal event falling through [place] door, plate glass window, sustaining multiple lacerations extensively to the forehead, canthus of the eye, eyelid and right cheek, greater than 40 cm of lacerations, two on the totaling the two of them about 10 cm. There was a complex evulsion of the upper eyelid and right cheek for a total of about 25 cm of lacerations as well. PROCEDURE The patient was prepared, taken to the operating room at [facility] that evening due to bleeding and need to close him in the operating room. He was given general anesthesia and then prepped and draped in sterile fashion. Local anesthesia was given with 2% Xylocaine, 1:100,000 epinephrine, total of 12 cc, and another 3 cc was given later for a total of 15. The face was cleaned, made sure there was no glass in any of the wounds. Closure of all the complex wound. They were tangential to lacerations that were crosscut so there were different thickness on each side of the wounds unfortunately. Closure was done with 4-0 and 5-0 Vicryl in all the deep wounds and 5-0 and 6-0 Prolene for the skin. The left lateral canthal region and the upper eyelid tissue was trimmed and advanced. Part of the eyelid was missing in the upper lid and closure was done there with 6-0 Prolene as well. In the right lateral area it went all the way down to the lateral orbital rim. It was irrigated and closed with 5-0 Vicryl deep and 6-0 Prolene to the skin as well. Bacitracin was placed on the wounds. The patient was taken to Recovery with vital signs stable. He will probably be kept overnight in the hospital and the next day for work-up his syncopal event. LY [place]wood /12:28 PM /1:57 PM
== END 2016-07-23 21:41 | disposition home or self-care (01) | DRG 581 ==
LOC: HOR 22:59 → NEDA 07-21 00:51 → HPAC 07-21 01:16 → N07B 07-21 12:45 → HCIS 07-23 09:21
PROVIDERS: ADMIT Hospitalist; ATTEND Hospitalist
PROC: 08QNXZZ Repair Right Upper Eyelid, External Approach (ICD-10-PCS; 2016-07-21)
PROC: 08QPXZZ Repair Left Upper Eyelid, External Approach (ICD-10-PCS; 2016-07-21)
PROC: 0JQ13ZZ Repair Face Subcutaneous Tissue and Fascia, Percutaneous Approach (ICD-10-PCS; principal; 2016-07-21 01:30)
PROC: 4A0234Z Measurement of Cardiac Electrical Activity, Percutaneous Approach (ICD-10-PCS; 2016-07-23)
PROC: 4A023FZ Measurement of Cardiac Rhythm, Percutaneous Approach (ICD-10-PCS; 2016-07-23)
DX: S01.411A Laceration without foreign body of right cheek and temporomandibular area, initial encounter (principal); J84.10 Pulmonary fibrosis, unspecified; I48.91 Unspecified atrial fibrillation; D71 Functional disorders of polymorphonuclear neutrophils; I07.1 Rheumatic tricuspid insufficiency; S01.111A Laceration without foreign body of right eyelid and periocular area, initial encounter; R55 Syncope and collapse; S01.82XA Laceration with foreign body of other part of head, initial encounter; I45.10 Unspecified right bundle-branch block; W18.39XA Other fall on same level, initial encounter; Y92.009 Unspecified place in unspecified non-institutional (private) residence as the place of occurrence of the external cause
CPT/HCPCS: 70450; 70486; 71010; 71275; 72125; 80053; 80307; 80320; 81001; 82435; 82550; 82552; 82565; 82947; 83880; 84132; 84295; 84439; 84443; 84484; 84520; 85025; 85610; 85730; 86850; 86900; 86901; 90471; 90715; 93005; 93225; 93226; 93306; 93620; 96374; 96375; C1730; J0690; J2250; J2405; J3010; J7030; J7040; J7050; J7120; L0150; Q9967

== ENCOUNTER 2017-06-13 06:22 | Day surgery (SDC) | payer OTHER ==
[~2017-06-13] VITALS: Ht 182.9 cm; Wt 82.4 kg
[2017-06-13] VITALS (10 sets, daily range): BP systolic 90–148; BP diastolic 53–96; PULSE 78–106; RESP 18–19; TEMP 97.4–98.8; O2SAT 96–99
[~2017-06-13 06:22] MED LIST: CEPH-460 PO
[2017-06-13] MEDS ORDERED: HEPARIN-NS/PF INJ 2,000 ML ONE (06:42)
[2017-06-13] MEDS ORDERED: LEVOFLOXACIN 500 MG PREMIX INJ 100 ML IV ONE (06:43)
[2017-06-13] MEDS ORDERED: SODIUM CHLORID 0.9% 500 ML INJ 500 ML IV SCH (06:45)
[2017-06-13] MEDS ORDERED: LORazepam 1 MG TAB SL SCH (06:45)
[2017-06-13] MEDS ORDERED: METOPROLOL TARTRATE 25 MG TAB PO PRN (07:00)
[2017-06-13] MEDS ORDERED: LACTATED RINGER'S 1000 ML IV PRN (07:00)
[2017-06-13] MEDS ORDERED: SODIUM CHLORID 0.9% 500 ML IV PRN (07:00)
[2017-06-13] MEDS ORDERED: POVIDONE IODINE 5% (ANTISEPSIS KIT) 4 APPLICATIONS EACH NARE PRN (07:00)
[2017-06-13] MEDS ORDERED: CHLORHEXIDINE GLUCONATE 2 % 1 PACK (2 CLOTHS) TOPICAL PRN (07:00)
[2017-06-13] MEDS ORDERED: PROTAMINE SULFATE 50 MG/5 ML VIAL ONE (07:09)
[2017-06-13] MEDS ORDERED: HEPARIN-D5W 25,000 U/250 ML 250 ML ONE (07:09)
[2017-06-13] MEDS ORDERED: SODIUM CHLOR 0.9% 250 ML INJ 250 ML ONE (07:10)
[2017-06-13] MEDS ORDERED: HEPARIN SODIUM - IV 10,000 UNITS/10 ML VIAL ONE ×2 (07:10→09:26)
[2017-06-13] MEDS ORDERED: ISOPROTERENOL HCL 1 MG/5 ML AMP ONE (07:10)
[2017-06-13] MEDS ORDERED: MIDAZOLAM HCL 2 MG/2 ML VIAL ONE (07:11)
[2017-06-13 07:17] LABS: AUTOMATED NEUTROPHIL # 3.5 TH/MM3 (1.8-7.7); BASOPHIL # 0.1 TH/MM3 (0-0.2); BASOPHIL % 1.2 % (0.0-2.0); EOSINOPHIL # 0.4 TH/MM3 (0-0.4); EOSINOPHIL % 6.8 % (0.0-4.0); HEMATOCRIT 43.9 % (39.0-51.0); HEMO FLAGS DIFF FINAL; LYMPH % 28.7 % (9.0-44.0); LYMPHOCYTE # 1.8 TH/MM3 (1.0-4.8); MEAN CELL VOLUME 88.6 FL (80.0-100.0); MEAN CORPUSCULAR HEMOGLOBIN 30.5 PG (27.0-34.0); MEAN CORPUSCULAR HGB CONC 34.4 % (32.0-36.0); NEUT % 56.3 % (16.0-70.0); PLATELET COUNT 245 TH/MM3 (150-450); RED BLOOD COUNT 4.95 MIL/MM3 (4.50-5.90); RED CELL DISTRIBUTION WIDTH 13.3 % (11.6-17.2); WHITE BLOOD COUNT 6.2 TH/MM3 (4.0-11.0)
[2017-06-13 07:26] LABS: PROTHROMBIN TIME - PATIENT 10.2 SEC (9.8-11.6)
[2017-06-13] MEDS ORDERED: APIX5TAB PO (07:31)
[2017-06-13 07:34] LABS: BICARBONATE 30.3 MEQ/L (21.0-32.0); POTASSIUM 3.4 MEQ/L (3.5-5.1)
--- NOTE | 2017-06-13 10:15 | CATHPROC ---
[employer] HIS Report Study Information Study Number Admission Scheduled Start Study Start [id number] Jun 13 2017 6:22AM 06/13/2017 Jun 13 2017 7:08AM [place] [facility] Electrophysiology Study Admit Source Facility Department Other [facility] - Bookkeeping Clerks Supervisor Physician and Clinical Staff Initial Quynh Rodas Workers Compensation Paralegal Patti Hollingsworth,SENIOR COUNSEL COMMERCIAL Other Anesthesia, BREAKDOWN PERSON Recorder Cuong Clark,RN Recorder Anai Perez,BSRN Scrub Joe Mendez,(R) Equipment Time Parts Control Clerk Description Size Mfg Part Number Used/Scraped NEEDLE, TRANSSEPTAL NRG 98 [id number] 07:14 [facility] Used C1 *[id number] [employer]/ EP [id number] 07:14 KIT, TRANSDUCER / AFIB Used PACER *[id number] CATHETER, TACTICATH ABLAT BUNDLE 07:14 [facility] Used 65 BUNDLE *[id number] BUNDLE [id number] CATHETER, FR7 OPTIMA SPIRAL 07:14 [facility] FR7 *[id number]- Used BUNDLE BUNDLE [id number] 07:14 [facility] CATHETER, JSN, QUAD BUNDLE FR 5 *[id number]- Used BUNDLE [id number] 07:14 [facility] CATHETER, JSN, QUAD BUNDLE FR 5 *[id number]- Used BUNDLE [id number] SET, COOL POINT TUBING 07:14 [facility] *[id number]- Used BUNDLE BUNDLE SHEATH, FR8.5 STEERABLE SM 07:14 [facility] 71CM [id number] Used 71CM BUNDLE COVER, TRANSDUCER CABLE 612-113 07:14 [employer] Used ACUNAV *[id number] 07:14 CORDIS/PACER SHEATH, FR10 SAADIA 11CM FR 10 Used *[id number] 07:14 CORDIS/PACER SHEATH, FR9 SAADIA 11CM FR 9 [id number] Used [id number] 07:14 [employer] PACK, CCL CUSTOM * Used *[id number] 07:14 MEDLINE PACER JOLLY, LIMB * 2530 *[id number] Used [id number] 07:14 [place] MEDICAL SHEATH, FR4.5 PRELUDE 11CM FR 4.5 Used [id number] 07:14 NAMIC TUBING, HIGH PRESSURE 48" 48" Used *[id number] 07:14 NAMIC TUBING, HIGH PRESSURE 48" 48" Used *[id number] 07:14 [place] [employer] BL[employer]ET,WARM AIR CCL * Used *[id number] 07:14 [facility] MEDICAL ELECTRODE KIT, GRUPO X SURFACE * Used *[id number] 07:14 [facility] MEDICAL SHEATH, EPS, FR6 FAST CATH FR 6 Used *[id number] 07:14 [facility] MEDICAL SHEATH, EPS, FR7 FAST CATH FR 7 [id number] Used [id number] 07:14 [facility] MEDICAL SHEATH, EPS, FR8 FAST CATH FR 8 Used *[id number] CATHETER, ACUNAV FR10 ICE [id number] 08:34 JESSICA FR 10 Used (JESSICA) *[id number] [facility] PAD, ELECTROSURGICAL 07:14 * [id number] *[id number] Used SURGICAL GROUNDING (BLUE) Medication Medication Total Dose (Bolus/Oral) Medication Total Dosage/Unit 1% XYLOCAINE 40 mL HEPARIN 53057 units PROTAMINE 40 mg Medications (Bolus/Oral) Medication Time Given Dosage/Unit Administered By Reason 1% XYLOCAINE 06/13/2017 8:34:22 AM 20 mL Stiven, Hanscy 20 mL 1% XYLOCAINE given by Quynh Saleem in Left Groin via Subcutaneous. 1% XYLOCAINE 06/13/2017 8:38:16 AM 20 mL Stiven, Hanscy 20 mL 1% XYLOCAINE given by Quynh Saleem in Right Groin via Subcutaneous. HEPARIN 06/13/2017 8:48:44 AM 03867 units Anesthesia, BREAKDOWN PERSON 06012 units HEPARIN given by Anesthesia, BREAKDOWN PERSON via Peripheral IV. HEPARIN 06/13/2017 9:24:58 AM 2000 units Anesthesia, BREAKDOWN PERSON 2000 units HEPARIN given by Anesthesia, BREAKDOWN PERSON via Peripheral IV. HEPARIN 06/13/2017 9:40:48 AM 2000 units Anesthesia, BREAKDOWN PERSON 2000 units HEPARIN given by Anesthesia, BREAKDOWN PERSON via Peripheral IV. 06/13/2017 10:09:28 PROTAMINE 40 mg Anesthesia, BREAKDOWN PERSON AM 40 mg PROTAMINE given by Anesthesia, BREAKDOWN PERSON. Medication (Drip) Medication Time Given Dosage/Unit Concentration/Unit Diluent (ml) Solution HEPARIN DRIP 06/13/2017 9:06:08 AM 500 units/hr 94113 units 250 D5W 500 units/hr HEPARIN DRIP given by Anesthesia, BREAKDOWN PERSON via Peripheral IV. Pump/Drip Flow = 5 ml/hr [place] D5[place] [address] units in 250 ml. HEPARIN DRIP 06/13/2017 9:25:00 AM 1000 units/hr 38802 units 250 D5W 1000 units/hr HEPARIN DRIP given by Anesthesia, BREAKDOWN PERSON via Peripheral IV. Pump/Drip Flow = 10 ml/hr usi [place] D5W [place] [address] units in 250 ml. ISUPREL 06/13/2017 9:51:35 AM 20 mcg/min 1 mg 250 NaCl .9 20 mcg/min ISUPREL given by Anesthesia, BREAKDOWN PERSON via Peripheral IV. Pump/Drip Flow = 300 ml/hr using NaCl .9 with a concentration of 1 mg in 250 ml. LEVAQUIN 06/13/2017 8:10:00 AM 100 mL/hr 500 100 NaCl .9 100 mL/hr LEVAQUIN given by Anesthesia, BREAKDOWN PERSON via Peripheral IV. Pump/Drip Flow = 0 ml/hr using NaCl . 9 with a concentration of 500 in 100 ml. Chronological Log Time Study Chronological Log 7:46:55 Patient arrived via Bed. 7:46:57 Patient Name, D.O.B, / Armband Verified By R.N. 7:47:02 Anesthesia at bedside. Assumes care of patient. 7:48:41 Skin Breakdown-none per pt 7:48:50 Patient has been NPO for More than 6Hrs. 7:48:55 Patient Warmer Placed on the Table. 7:49:03 Disposable Defibrillator Pads Placed On Patient. 7:49:06 Mynor Prominences Protected 7:49:11 IV Warmer Connected To Patient. 7:49:13 A # 20 IV was noted in the Antecubital (left). Grade = 0 7:49:21 A # 20 IV was noted in the Antecubital (right). Grade = 0 7:49:28 History and physical on the chart or being dictated. 7:49:30 Table restraints applied according to hospital policy 7:49:44 Bilateral groins prepped with 2% chlorhexidine, and draped after a 3 minute waiting time. BL PEDALS 2 7:59:00 100 mL/hr LEVAQUIN given by Anesthesia, BREAKDOWN PERSON via Peripheral IV. Pump/Drip Flow = 0 ml/hr using N aCl .9 with a 8:10:00 concentration of 500 in 100 ml. 8:18:35 INTUBATED 8:18:44 WILL 8:19:42 MD paged 8:26:42 MD arrived. Time Out. Correct patient, procedure, procedure equipment, site and side verified with physician present. Time 8:31:27 concurred by MD, individual staff and BREAKDOWN PERSON. Time Out #2 - Consents verified, patient in correct position, all results are labled and display ed, safety precautions 8:31:29 taken, antibiotics administered. Time out concurred by MD, individual staff and BREAKDOWN PERSON in procedur e 8:31:32 Case Start 8:31:54 LARISA 8:33:57 LARISA COMPLETE 8:34:22 20 mL 1% XYLOCAINE given by Quynh Saleem in Left Groin via Subcutaneous. 8:36:13 Vascular access was obtained in the Fem Vein (left). 8:36:24 A SHEATH, EPS, FR6 FAST CATH FR 6 was advanced into the Fem Vein (left) using the Modified S eldinger technique. 8:36:45 A SHEATH, EPS, FR7 FAST CATH FR 7 was advanced into the Fem Vein (left) using the Modified S eldinger technique. 8:36:49 A SHEATH, FR10 SAADIA 11CM FR 10 was advanced into the Fem Vein (left) using the Modified Se camacho technique. 8:36:54 A SHEATH, FR4.5 PRELUDE 11CM FR 4.5 was advanced into the Fem Art (left) using the Modified Seldinger technique. 8:38:16 20 mL 1% XYLOCAINE given by Quynh Saleem in Right Groin via Subcutaneous. 8:38:26 Vascular access was obtained in the Fem Vein (right). 8:38:30 A SHEATH, EPS, FR8 FAST CATH FR 8 was advanced into the Fem Vein (right) using the Modified Seldinger technique. A CATHETER, JSN, QUAD BUNDLE FR 5 was advanced vis Fem Vein (left) and placed in the CS. Placeme nt was visually 8:41:52 confirmed under fluoroscopy. A CATHETER, JSN, QUAD BUNDLE FR 5 was advanced vis Fem Vein (left) and placed in the HIS. Placem ent was 8:42:16 visually confirmed under fluoroscopy. 8:44:52 INSERT JESSICA TO HRA 8:48:44 37355 units HEPARIN given by Anesthesia, BREAKDOWN PERSON via Peripheral IV. A SHEATH, FR8.5 STEERABLE SM 71CM BUNDLE 71CM was advanced into the Fem Vein (right) using the M odified 8:49:57 Seldinger technique. 8:50:12 HUMERA IN 8:50:20 TRANSCEPTAL, HUMERA OUT A CATHETER, FR7 OPTIMA SPIRAL BUNDLE FR7 was advanced vis Fem Vein (right) and placed in the LA. Placement 8:50:53 was visually confirmed under fluoroscopy. 8:51:16 MAPPING IN PROGRESS 8:58:01 MAPPING COMPLETE A CATHETER, TACTICATH ABLAT 65 BUNDLE was advanced vis Fem Vein (right) and placed in the LA. Placement was 8:58:27 visually confirmed under fluoroscopy. 9:01:40 ACT (Normal Range 90-180) = 366 500 units/hr HEPARIN DRIP given by Anesthesia, BREAKDOWN PERSON via Peripheral IV. Pump/Drip Flow = 5 ml/h r using D5W with a 9:06:[place] [address] units in 250 ml. 9:08:32 ABLATION IN PROGRESS 9:24:47 ACT (Normal Range 90-180) = 284 9:24:58 2000 units HEPARIN given by Anesthesia, BREAKDOWN PERSON via Peripheral IV. 1000 units/hr HEPARIN DRIP given by Anesthesia, BREAKDOWN PERSON via Peripheral IV. Pump/Drip Flow = 10 ml /hr using D5W with 9:25:00 [place] [address] units in 250 ml. 9:40:48 2000 units HEPARIN given by Anesthesia, BREAKDOWN PERSON via Peripheral IV. 20 mcg/min ISUPREL given by Anesthesia, BREAKDOWN PERSON via Peripheral IV. Pump/Drip Flow = 300 ml/hr usi ng NaCl .9 with a 9:51:35 concentration of 1 mg in 250 ml. 9:53:37 ABLATION COLPLETE 9:53:51 ACT (Normal Range 90-180) = 344 10:03:12 ISUPREL OFF 10:03:22 Case End A SHEATH, FR9 SAADIA 11CM FR 9 was exchanged in the Fem Vein (right). This was necessary in or zak to achieve 10:08:09 vascular hemostasis. 10:08:35 PACU called. Spoke to BUCK 10:09:28 40 mg PROTAMINE given by Anesthesia, BREAKDOWN PERSON. 10::[address] 10:25:00 Patient moved to [facility] End Study - Contrast Media Used In Study Contrast Total Opened (mL) Total Used (mL) Total Wasted (mL) Unspecified 0 0 0 End Study - Radiation Exposure Fluoro Time (minutes) 1.0 End Study - Patient Disposition Complications Transferred To Interventional Outcome No Telemetry Bed successful
[2017-06-13] MEDS ORDERED: DO NOT ADM ANY ANTICOAGULANT DRUGS PRN (10:42)
--- NOTE | 2017-06-13 11:27 | PD.CARD ---
Atrial Fibrillation Ablation PROCEDURE DATE: Jun 13, 2017 PROCEDURES PERFORMED: 1. Electrophysiology study on Isuprel infusion 2. CS cannulation 3. 3-D mapping 4. Transseptal approach 5. Right and left heart catheterization 6. Intracardiac echo 7. Radiofrequency ablation of atrial fibrillation 8. Pulmonary vein isolation 9. Posterior wall ablation 10. Mitral line creation 11. Anterior wall ablation INDICATIONS FOR THE PROCEDURE Mr. Payan is a 47-year-old male with atrial fibrillation referred for electrophysiology study and ablation. The patient is symptomatic and on anticoagulation. The risks, the nature and the benefits of the procedure were clearly stated to him. The risks include pneumothorax, cardiac perforation, stroke, need for open heart surgery and even . The patient understood and agreed to proceed. DESCRIPTION OF THE PROCEDURE IN DETAIL As written informed consent was obtained prior to esophageal echocardiogram, the patient was kept on the table where he was prepped and draped in the usual sterile fashion. Conscious sedation was initiated and maintained throughout the procedure by the anesthesiologist. Once sedation was verified, the right and left inguinal areas were anesthetized with 2% Xylocaine. Using modified Seldinger technique, the left femoral vein was cannulated on three occasions, three guidewires were advanced. Over the wire a 6, 7 and a 10-Croatian Hemaquet were advanced. Then the left femoral artery was cannulated on one occasion, one guidewire was advanced. Over the wire a 4-Croatian Hemaquet was advanced. Then the right femoral vein was cannulated on one occasion, one guidewire was advanced. Over the wire a 8-Croatian Hemaquet was advanced. Then under fluoroscopic guidance through the 6 and 7-Croatian Hemaquet, two 5-Croatian Marc curved quadripolar electrophysiology catheters were advanced and placed around the His as well as coronary sinus. Basic interval was measured. The patient was in atrial fibrillation. Through the 10-Croatian Hemaquet, a Cordis Tian AcuNav intracardiac echo catheter was advanced and placed at the right atrium. Multiple view was obtained. There was no pericardial effusion, pulmonary vein was seen, atrial septal was visualized. Then the 8-Croatian Hemaquet in the right femoral vein was exchanged for Agilis transseptal sheath that was placed all the way to the superior vena cava. Through the sheath a Heriberto needle was advanced, then the sheath, the dilator and the needle were progressed until foci engaged. Once engaged, the needle was advanced. RF was delivered for 2 seconds. I was able to cross into the left atrium. Once the needle crossed, the dilator was advanced. Once the dilator crossed, the sheath was advanced. Once the sheath crossed, the dilator and the needle were removed. At this point I did flood the system and fluid movement was seen in the left atrium the indicates the sheath is in good position. The patient already received 10,000 units of heparin. The goal is to keep an ACT around 350 during ablation. Then through the sheath a [place]. [place] 20 pulse circumferential catheter was advanced. Using GoSquared endocardial solution mapping system, a two-dimensional configuration of the left atrium was obtained. Points were taken at the left superior and inferior veins, right superior and inferior veins, mitral valve, and appendages. Then through the sheath a [place]. Francisco TactiCath 65cm 3.5mm irrigated tipped mapping and radiofrequency ablation catheter was advanced. Esophageal probe was placed temperature monitoring during ablation. When it increased to 0.5 degrees Celsius above baseline, I moved to a different area of the atrium. First I did isolate the left superior and inferior vein. I did make a [place] around the veins. Posterior wall was ablated. septal wall was ablated. A mitral line was created. Then the right superior and inferior veins were isolated. I did remap the atrium. There was no signal into the vein, pacing from the vein showed no conduction to the atrium. Isuprel infusion was initiated at 20 mcg for over 15 minutes. No tachyarrhythmia was induced, post Isuprel no tachyarrhythmia was induced. At that point the procedure was complete. All catheters were removed , atrial septal sheath was exchanged for 9-Croatian Hemaquet, intracardiac echo showed no pericardial effusion. There is still good flow in the pulmonary vein. The patient is going to be transferred to the recovery room. No incident report. The patient tolerated the procedure. Blood loss was minimal. FINDINGS 1. Electrocardiogram: At baseline the patient was in sinus rhythm, post procedure electrocardiogram was unchanged. 2. Basic interval: Base cycle length was around 860. AH at 90 and HV at 46 milliseconds. 3. Tachyarrhythmia: Atrial fibrillation was mapped and ablated. The ablation was successful. CONCLUSION Successful electrophysiology study, mapping, radiofrequency ablation of atrial fibrillation, pulmonary vein isolation, posterior ablation, mitral line creation. COMMENTS AND RECOMMENDATIONS The patient is going to be transferred to the telemetry unit. Will be observed and when stable can be discharged home. Quynh Saleem MD Jun 13, 2017 11:27
[2017-06-13] MEDS ORDERED: ATROPINE SULFATE 1 MG/ML VIAL IV PUSH PRN (11:30)
[2017-06-13] MEDS ORDERED: SODIUM CHLOR 0.9% 250 ML INJ 250 ML IV PRN (11:30)
[2017-06-13] MEDS ORDERED: BACITRACIN OINT 0.9 GM PKT TOP ONE (11:30)
[2017-06-13] MEDS ORDERED: LIDOCAINE HCL 1% 50 ML VIAL INFIL PRN (11:30)
[2017-06-13] MEDS ORDERED: METOCLOPRAMIDE HCL 10 MG/2 ML VIAL IV PUSH PRN (11:30)
[2017-06-13] MEDS ORDERED: oxyCODONE/ACETAMINOPHEN 5 MG/325 MG TAB PO PRN ×2 (11:30)
[2017-06-13] MEDS ORDERED: ONDANSETRON HCL 4 MG/2 ML VIAL IV PUSH PRN (11:30)
[2017-06-13] MEDS ORDERED: LORazepam 2 MG/ML VIAL IV PUSH PRN (11:30)
--- NOTE | 2017-06-13 18:02 | EKG ---
Date Performed: 06/13/2017 Time Performed: 07:33:34 PTAGE: 47 years EKG: Sinus rhythm . Incomplete RBBB Septal T wave changes are nonspecific Borderline ECG Since PREVIOUS TRACING , no significant change noted PREVIOUS TRACIN07/21/2016 00.02 DOCTOR: Samantha Torres Interpretating Date/Time 06/13/2017 18:01:16
--- NOTE | 2017-06-13 18:03 | EKG ---
Date Performed: 06/13/2017 Time Performed: 11:33:11 PTAGE: 47 years EKG: SINUS TACHYCARDIA INCOMPLETE RIGHT BUNDLE BRANCH BLOCK ABNORMAL RHYTHM ECG PREVIOUS TRACING : 06/13/17 07.33 Since previous tracing, no significant change noted DOCTOR: Samantha Torres Interpretating Date/Time 06/13/2017 18:02:01
[2017-06-13] MEDS: APIXABAN 5 MG TABLET PO SCH (20:59)
[2017-06-14] VITALS (8 sets, daily range): BP systolic 114–116; BP diastolic 65–69; PULSE 97–102; RESP 18; TEMP 97.8–98.5; O2SAT 95
[2017-06-14 06:51] LABS: APTT (PATIENT) 24.3 SEC (24.3-30.1); INTERNATIONAL NORMALIZED RATIO 1.1 RATIO; PROTHROMBIN TIME - PATIENT 10.9 SEC (9.8-11.6)
[2017-06-14] MEDS: APIXABAN 5 MG TABLET PO SCH (08:28)
--- NOTE | 2017-06-14 10:49 | HHI.PR ---
Subjective Remarks Feeling ok Objective Vital Signs Date Time Temp Pulse Resp B/P (MAP) Pulse Ox O2 Delivery O2 Flow Rate FiO2 06/14/17 07:53 97.8 101 18 116/69 (85) 95 06/14/17 06:00 99 06/14/17 05:00 99 06/14/17 04:00 97 06/14/17 03:40 101 06/14/17 03:40 98.5 101 18 114/65 (81) 95 06/14/17 02:15 100 06/14/17 01:39 98 06/14/17 00:00 102 06/13/17 23:10 98.8 103 19 113/67 (82) 98 06/13/17 23:00 101 06/13/17 22:00 106 06/13/17 21:00 104 06/13/17 20:00 102 06/13/17 19:30 105 06/13/17 19:30 98.6 105 18 90/53 (65) 97 06/13/17 19:20 98.6 105 18 90/53 (65) 97 06/13/17 18:02 106 06/13/17 16:00 97.4 78 18 102/74 (83) 96 06/13/17 14:00 105 16 106/61 (76) 96 Room Air Arterial Line 06/13/17 13:00 105 16 104/55 (71) 93 Room Air 109/69 (82) 06/13/17 12:45 105 16 99/58 (72) 94 Room Air 110/70 (83) 06/13/17 11:45 102 16 101/59 (73) 96 Room Air 111/64 (80) 06/13/17 11:30 104 16 99/54 (69) 93 Room Air 114/66 (82) 06/13/17 11:15 104 16 101/58 (72) 95 Room Air 116/67 (83) 06/13/17 11:00 102 16 100/57 (71) 93 Room Air 121/71 (88) I/O 06/13/17 06/13/17 06/13/17 06/14/17 06/14/17 06/14/17 07:00 15:00 23:00 07:00 15:00 23:00 Intake Total 360 ml 600 ml 1200 ml Output Total 200 ml 800 ml 2950 ml Balance 160 ml -200 ml -1750 ml Intake Oral 360 ml 600 ml 1200 ml IV Total 0 ml Output Urine Total 200 ml 800 ml 2950 ml Result Diagram: 06/13/1755 06/13/1755 Imaging Alert, fully oriented lungs: ventilated Heart: S1, S2 regular, no gallop Abdomen: soft, no mass ext: no edema Current Medications Medications (Trade) Dose Ordered Sig/Yvonne Route Start Time Stop Time Status Last Admin (Ativan) 1 mg ENVIRONMENTAL SYSTEMS COORDINATOR SL 06/13/17 06:45 06/16/17 06:44 (Lopressor) 25 mg ENVIRONMENTAL SYSTEMS COORDINATOR PRN PO 06/13/17 07:00 06/16/17 06:59 (Betadine 5% Antisepsis Kit) 1 applic ENVIRONMENTAL SYSTEMS COORDINATOR PRN EACH NARE 06/13/17 07:00 06/16/17 06:59 (Chlorhexidine 2% Cloth) 3 pack ENVIRONMENTAL SYSTEMS COORDINATOR PRN TOPICAL 06/13/17 07:00 06/16/17 06:59 (Percocet 5-325 Mg) 1 tab Q4H PRN PO 06/13/17 11:30 (Percocet 5-325 Mg) 2 tab Q4H PRN PO 06/13/17 11:30 (Ativan Inj) 0.5 mg UNSCH PRN IV PUSH 06/13/17 11:30 06/14/17 11:29 (Atropine Inj) 0.5 mg UNSCH PRN IV PUSH 06/13/17 11:30 Sodium Chloride 250 ml @ 500 mls/hr ONCE PRN IV 06/13/17 11:30 06/14/17 11:29 (Reglan Inj) 10 mg Q4H PRN IV PUSH 06/13/17 11:30 (Zofran Inj) 4 mg Q4H PRN IV PUSH 06/13/17 11:30 (Xylocaine 1% Inj (50 ml)) 10 ml UNSCH PRN INFIL 06/13/17 11:30 06/14/17 11:29 (Eliquis) 5 mg BID PO 06/13/17 21:00 06/14/17 08:28 Assessment and Plan Problem List: (1) Atrial fibrillation ICD Codes: I48.91 - Unspecified atrial fibrillation Status: Acute Plan: SP ablation Doing well will be Follow up as previously scheduled (2) Near syncope ICD Codes: R55 - Syncope and collapse Status: Acute Plan: No new episode reported Quynh Saleem MD Jun 14, 2017 10:49
--- NOTE | 2017-06-14 13:03 | EKG ---
Date Performed: 06/14/2017 Time Performed: 03:48:04 PTAGE: 47 years EKG: Sinus rhythm rSr'(V1) - probable normal variant Normal ECG PREVIOUS TRACING : 06/13/2017 11.33 Compared to prior tracing no significant change DOCTOR: Jadiel Mota Interpretating Date/Time 06/14/2017 13:01:38
== END 2017-06-14 12:03 | disposition home or self-care (01) ==
LOC: HDOC 06:22 → HDIC 06:22 → HCIS 15:33 → HDOC 06-14 12:03
PROVIDERS: ATTEND Internal Medicine Interventional Cardiology
DX: I48.91 Unspecified atrial fibrillation (principal); R55 Syncope and collapse
CPT/HCPCS: 00537; 80048; 85002; 85025; 85610; 85730; 86850; 86900; 86901; 93005; 93312; 93320; 93325; 93613; 93623; 93656; 93662; C1730; C1731; C1732; C1759; C1766; C2630; J1644; J1956; J2250; J2720; J3010; J7050